=== PATIENT | male | born 1960 | race African-American/Black ===

== ENCOUNTER 2019-08-11 14:45 | Emergency (ER) | payer SELFPAY ==
--- NOTE | 2019-08-11 16:56 | ED ---
Complex/Multi-Sys Presentation - HPI Summary HPI Summary: This patient is a 59 year old male presenting to [facility] with a chief complaint of medication refill. He is a previous chemo patient, has reoccurring bladder retention that has required hospitalization multiple times since april. states his medications are going to run out and has not been able to complete DDS requirements. returned from [facility] 07/29. He states he is on Plavix for blood clot in his bladder. Patient reports bladder spasms when he has urinary retention, he says he is doing well and his medications have been the reason why. Plavix 75 mg Finasteride 5 mg once a day Tampsulosin - History Of Current Complaint Chief Complaint: EDMedicationRefill Hx Obtained From: Patient - Allergies/Home Medications Allergies/Adverse Reactions: Allergies Allergy/AdvReac Type Severity Reaction Status Date / Time No Known Allergies Allergy Verified 08/11/19 15:07 Home Medications: Home Medications Clopidogrel TAB* [Plavix TAB*] 75 mg PO DAILY 08/11/19 [History Confirmed ] Finasteride TAB* [Proscar TAB*] 5 mg PO DAILY 08/11/19 [History Confirmed ] Finasteride TAB* [Proscar TAB*] 5 mg PO DAILY 30 Days #30 tab 08/11/19 [Rx] Tamsulosin CAP* [Flomax CAP*] 0.4 mg PO DAILY 08/11/19 [History Confirmed ] Tamsulosin CAP* [Flomax CAP*] 0.4 mg PO DAILY 30 Days #30 cap 08/11/19 [Rx] PMH/Surg Hx/FS Hx/Imm Hx Cardiovascular History: Reports: Hx Deep Vein Thrombosis History: Reports: Hx Benign Prostatic Hyperplasia, Other Problems/ Disorders - Prostate cancer Musculoskeletal History: Reports: Hx Arthritis Infectious Disease History: No Infectious Disease History: Denies: Traveled Outside the [place] in Last 30 Days - Family History Known Family History: Positive: Other - Cancer - Social History Hx Substance Use: Yes Smoking Status (MU): Current Every Day Smoker Type: Cigarettes Review of Systems Negative: Fever Positive: other - Bladder spasms when not on medication for extended periods of time All Other Systems Reviewed And Are Negative: Yes Physical Exam - Summary Physical Exam Summary: General: Well appearing, no distress HEENT: PERRL Cardiovascular: Skin is well perfused Pulmonary: No respiratory distress, no tachypnea Abdomen: Non-distended Skin: Warm, pink, dry MSK: No edema Psych: Normal affect Neuro: A&Ox3 Triage Information Reviewed: Yes Vital Signs On Initial Exam: Initial Vitals Temp Pulse Resp BP Pulse Ox 98.7 F 69 16 146/82 100 08/11/19 15:01 08/11/19 15:01 08/11/19 15:01 08/11/19 15:01 08/11/19 15:01 Vital Signs Reviewed: Yes Procedures - Sedation Patient Received Moderate/Deep Sedation with Procedure: No Diagnostics - Vital Signs Vital Signs Temp Pulse Resp BP Pulse Ox 08/11/19 15:01 98.7 F 69 16 146/82 100 - Laboratory Lab Statement: Any lab studies that have been ordered have been reviewed, and results considered in the medical decision making process. Complex Multi-Symp Course/Dx Course Of Treatment: 59 y/o male w hx BPH and prostate cancer p/w medication refill. - refilled tamsulosin and finasteride. Advise patient to follow-up with primary care regarding Plavix as he is taken off of secondary to hematuria. - Diagnoses Provider Diagnoses: BPH (benign prostatic hyperplasia), Medication refill, Prostate cancer Discharge ED - Sign-Out/Discharge Documenting (check all that apply): Patient Departure - Discharge Plan Condition: Good Disposition: HOME Prescriptions: Finasteride TAB* [Proscar TAB*] 5 mg PO DAILY 30 Days #30 tab Tamsulosin CAP* [Flomax CAP*] 0.4 mg PO DAILY 30 Days #30 cap Patient Education Materials: Enlarged Prostate (BPH) (ED) Referrals: Silvestre Zacarias MD [Medical Doctor] - [facility] [Outside] Additional Instructions: You were seen in the emergency department for medication refill. Please follow up with primary care clinic, and urology as instructed. Please follow up with your primary care doctor in next 2-3 days and return to emergency department for worsening or concerning symptoms. It was a pleasure taking care of you today. - Billing Disposition and Condition Condition: GOOD Disposition: Home - Attestation Statements Document Initiated by Scribe: Yes Documenting Scribe: Eleazar Vogel Provider For Whom Scribe is Documenting (Include Credential): Andres Garay MD Scribe Attestation: I, Eleazar Vogel, scribed for Andres Garay MD on 08/11/19 at 1723. Scribe Documentation Reviewed: Yes Provider Attestation: The documentation as recorded by the scribe, Eleazar Vogel accurately reflects the service I personally performed and the decisions made by me, Andres Garay MD Status of Scribe Document: Viewed
[2019-08-11 17:03] VITALS: BP 149/117
== END 2019-08-11 17:02 | disposition home or self-care (01) ==
LOC: ED 14:45
DX: N40.0 Benign prostatic hyperplasia without lower urinary tract symptoms (principal); C61 Malignant neoplasm of prostate; Z79.899 Other long term (current) drug therapy; Z79.02 Long term (current) use of antithrombotics/antiplatelets; Z86.718 Personal history of other venous thrombosis and embolism; F17.210 Nicotine dependence, cigarettes, uncomplicated
CPT/HCPCS: 99282

== ENCOUNTER 2019-09-21 10:30 | Emergency (ER) | payer MEDICAID ==
[2019-09-21 11:15] VITALS: BP 157/71
--- NOTE | 2019-09-21 11:40 | ED ---
GI/ HPI - HPI Summary HPI Summary: Patient is a 59-year-old male presenting to the ED with request for refill on his medications. [facility] He recently relocated to the area and has not established care. He states he has been treated for prostate CA stage 1, but has had not further symptoms. D/t multiple blood clots prior to his cystoscopy, he was placed on finasteride and flomax. He was also placed on plavix prior to this d/t stroke hx. He has not had any of these medications in 2 weeks or so and was seen 1 mo ago here in the ED where his prescriptions were refilled. He has not followed up with urology or care connections. He states he does not want to take the finasteride anymore as he was only placed on that d/t acute urinary retention associated with his surgery. He has not had any pain or retention since that time. Denies sxs today. - History of Current Complaint Chief Complaint: EDPrescriptionNeeded Time Seen by Provider: 09/21/19 10:38 Stated Complaint: RENEW PRESCRIPTIONS PER PT Hx Obtained From: Patient Timing: Constant Pain Intensity: 0 - Allergy/Home Medications Allergies/Adverse Reactions: Allergies Allergy/AdvReac Type Severity Reaction Status Date / Time No Known Allergies Allergy Verified 09/21/19 10:35 Home Medications: Home Medications Clopidogrel TAB* [Plavix TAB*] 75 mg PO DAILY 08/11/19 [History Confirmed ] Finasteride TAB* [Proscar TAB*] 5 mg PO DAILY 30 Days #30 tab 08/11/19 [Rx Confirmed 09/21/19] Tamsulosin CAP* [Flomax CAP*] 0.4 mg PO DAILY 30 Days #30 cap 08/11/19 [Rx Confirmed 09/21/19] Clopidogrel TAB* [Plavix TAB*] 75 mg PO DAILY #30 tab 09/21/19 [Rx] Tamsulosin CAP* [Flomax CAP*] 0.4 mg PO DAILY #30 cap 09/21/19 [Rx] PMH/Surg Hx/FS Hx/Imm Hx Previously Healthy: Yes Cardiovascular History: Reports: Hx Deep Vein Thrombosis History: Reports: Hx Benign Prostatic Hyperplasia, Other Problems/ Disorders - Prostate cancer Musculoskeletal History: Reports: Hx Arthritis Infectious Disease History: No Infectious Disease History: Denies: Traveled Outside the [place] in Last 30 Days - Family History Known Family History: Positive: Other - Cancer - Social History Occupation: Unemployed Lives: Alone Alcohol Use: Occasionally Hx Substance Use: Yes Substance Use Type: Reports: None Smoking Status (MU): Current Every Day Smoker Type: Cigarettes Review of Systems Negative: Fever, Chills, Fatigue, Skin Diaphoresis Negative: Palpitations, Chest Pain Genitourinary: Negative Positive: no symptoms reported, see HPI Negative: Arthralgia, Myalgia Neurological/Mental Status: Negative All Other Systems Reviewed And Are Negative: Yes Physical Exam Triage Information Reviewed: Yes Vital Signs On Initial Exam: Initial Vitals Temp Pulse Resp BP Pulse Ox 97.9 F 63 16 139/97 96 09/21/19 10:32 09/21/19 10:32 09/21/19 10:32 09/21/19 10:32 09/21/19 10:32 Vital Signs Reviewed: Yes Appearance: Positive: Well-Appearing, Well-Nourished Skin: Positive: Warm, Skin Color Reflects Adequate Perfusion Head/Face: Positive: Normal Head/Face Inspection Eyes: Positive: EOMI, RITIKA, Conjunctiva Clear Neck: Positive: Supple, No Lymphadenopathy Respiratory/Lung Sounds: Positive: Clear to Auscultation, Breath Sounds Present Cardiovascular: Positive: RRR, Pulses are Symmetrical in both Upper and Lower Extremities Musculoskeletal: Positive: Normal, Strength/ROM Intact Neurological: Positive: Speech Normal Psychiatric: Positive: Normal, Affect/Mood Appropriate AVPU Assessment: Alert Procedures - Sedation Patient Received Moderate/Deep Sedation with Procedure: No Diagnostics - Vital Signs Vital Signs Temp Pulse Resp BP Pulse Ox 09/21/19 11:14 98.2 F 70 14 157/71 100 09/21/19 10:32 97.9 F 63 16 139/97 96 - Laboratory Lab Statement: Any lab studies that have been ordered have been reviewed, and results considered in the medical decision making process. GIGU Course/Dx - Course Course Of Treatment: Patient was given referrals to urology as well as care connections to establish care. He was given Plavix 75 mg by mouth daily and Flomax 0.4 mg by mouth daily at this time. Patient is requesting not to be placed on finasteride as he states this was only to be temporary due to urinary retention associated with his procedure. His procedure was over 2 months ago and states he does not have any evidence of urinary retention denies any gross hematuria. - Diagnoses Provider Diagnoses: Medication refill - Critical Care Time Critical Care Statement: Critical care time is provided exclusive of any time spent performing procedures. Discharge ED - Sign-Out/Discharge Documenting (check all that apply): Patient Departure - Discharge Plan Condition: Stable Disposition: HOME Prescriptions: Clopidogrel TAB* [Plavix TAB*] 75 mg PO DAILY #30 tab Tamsulosin CAP* [Flomax CAP*] 0.4 mg PO DAILY #30 cap Referrals: [facility] [Outside] No Primary Care Phys,[facility] [Primary Care Provider] - Silvestre Zacarias MD [Medical Doctor] - Additional Instructions: Please call urology and care connections to establish care on MONDAY Continue to take your medications as prescribed We have discontinued your finasteride - if you develop any retention - you need to return to the ED - Billing Disposition and Condition Condition: STABLE Disposition: Home
== END 2019-09-21 11:14 | disposition home or self-care (01) ==
LOC: ED 10:30
DX: Z76.0 Encounter for issue of repeat prescription (principal); Z86.718 Personal history of other venous thrombosis and embolism; Z79.02 Long term (current) use of antithrombotics/antiplatelets; N40.0 Benign prostatic hyperplasia without lower urinary tract symptoms; M19.90 Unspecified osteoarthritis, unspecified site; F17.210 Nicotine dependence, cigarettes, uncomplicated
CPT/HCPCS: 99282

== ENCOUNTER 2019-12-24 13:29 | Inpatient (IN) ==
[2019-12-24] MEDS ORDERED: Morphine 4 MG/ML VIAL (1 ml) IV ONE ×2 (15:32→17:33)
[2019-12-24] MEDS ORDERED: NS 0.9% 1000 ml BAG 1,000 ML IV ONE (15:33)
[2019-12-24 16:01] LABS: ABS Lymphocytes 1.7 10^3/ul (1.0-4.8); ABS Monocytes 0.6 10^3/ul (0-0.8); ABS Neutrophils 4.5 10^3/ul (1.5-7.7); Eosinophil % 0.3 %; Hematocrit 42 % (42-52); Hemoglobin 14.5 g/dL (14.0-18.0); Mean Corpuscular HGB Conc 35 g/dL (31-36); Mean Corpuscular Hemoglobin 34 pg (27-31); Mean Corpuscular Volume 100 fL (80-94); Mean Platelet Volume 7.2 fL (7.4-10.4); Nucleated Red Blood Cells % 0.1; Platelet Count 259 10^3/uL (150-450); Red Blood Count 4.23 10^6 /uL (4.18-5.48); Red Cell Distribution Width 15 % (10-15); White Blood Count 6.8 10^3/uL (3.5-10.8)
[2019-12-24 16:33] LABS: Albumin/Globulin Ratio 1.4 (1-3); BUN/Creatinine Ratio 13.4 (8-20); C Reactive Protein 17.37 mg/L (<8.01); Calcium 9.5 mg/dL (8.6-10.3); EGFR African American 96.2 (>60); EGFR Non-African American 79.5 (>60); Globulin 2.9 g/dL (2-4); Total Protein 6.9 g/dL (6.4-8.9)
[2019-12-24] MEDS ORDERED: Thiamine 100 MG/ML 2 ml VIAL (200 mg) IM ONE (18:56)
[2019-12-24] MEDS ORDERED: Morphine 4 MG/ML VIAL (1 ml) IV PRN (19:21)
[2019-12-24 20:22] LABS: Urine Benzodiazepine Screen None Detected (None Detect); Urine Cannabinoids Screen Presumptive Positive (None Detect); Urine Opiates Screen Presumptive Positive (None Detect)
[2019-12-24] MEDS: Multivitamins/Minerals TAB PO SCH (22:39)
[2019-12-24] MEDS: Nicotine PATCH 21 MG/24 HR PATCH TRANSDERM SCH (22:39)
[2019-12-25] MEDS: oxyCODONE/Acetamin 5/325 mg TAB PO PRN ×3 (01:26→14:36)
[2019-12-25 08:11] LABS: ABS Eosinophils 0.1 10^3/ul (0-0.6); ABS Lymphocytes 1.8 10^3/ul (1.0-4.8); ABS Monocytes 0.5 10^3/ul (0-0.8); ABS Neutrophils 2.2 10^3/ul (1.5-7.7); Eosinophil % 1.5 %; Hematocrit 38 % (42-52); Hemoglobin 13.5 g/dL (14.0-18.0); Lymphocyte % 39.1 %; Mean Corpuscular HGB Conc 36 g/dL (31-36); Mean Corpuscular Hemoglobin 36 pg (27-31); Mean Corpuscular Volume 99 fL (80-94); Mean Platelet Volume 7.4 fL (7.4-10.4); Nucleated Red Blood Cells % 0.2; Platelet Count 239 10^3/uL (150-450); Red Cell Distribution Width 15 % (10-15); White Blood Count 4.6 10^3/uL (3.5-10.8)
[2019-12-25 08:24] LABS: BUN/Creatinine Ratio 15.8 (8-20); Calcium 8.5 mg/dL (8.6-10.3); EGFR African American 91.8 (>60); EGFR Non-African American 75.9 (>60); Potassium 3.9 mmol/L (3.5-5.0)
[2019-12-25] MEDS: Multivitamins/Minerals TAB PO SCH (08:50)
[2019-12-25] MEDS: Nicotine PATCH 21 MG/24 HR PATCH TRANSDERM SCH (08:51)
[2019-12-25] MEDS: Aspirin EC 81 mg TAB.EC (enteric coated) PO SCH (08:51)
[2019-12-25] MEDS ORDERED: Nicotine Lozenge mini 4 MG LOZNG.MINI MT PRN (09:19)
[2019-12-25 15:42] LABS: Urine Appearance Clear; Urine Bilirubin Negative (Negative); Urine Blood Negative (Negative); Urine Color Yellow; Urine Glucose Negative (Negative); Urine Ketones Negative (Negative); Urine Nitrite Negative (Negative); Urine Protein Negative (Negative); Urine Specific Gravity 1.012 (1.010-1.030); Urine Urobilinogen Negative (Negative)
[2019-12-25] MEDS: Enoxaparin 40 MG/0.4 ML SYR SUBCUT SCH (15:52)
[2019-12-25] MEDS: Morphine 2 MG/ML SYRINGE IV PRN (19:30)
[2019-12-26] MEDS: Morphine 2 MG/ML SYRINGE IV PRN (03:58)
[2019-12-26] MEDS: oxyCODONE/Acetamin 5/325 mg TAB PO PRN ×3 (08:15→20:15)
[2019-12-26] MEDS: Multivitamins/Minerals TAB PO SCH ×3 (08:16→16:15)
[2019-12-26] MEDS: Nicotine PATCH 21 MG/24 HR PATCH TRANSDERM SCH (08:17)
[2019-12-26] MEDS: Aspirin EC 81 mg TAB.EC (enteric coated) PO SCH (08:17)
[2019-12-26] MEDS: Polyethylene Glycol 3350 17 GM PACKET PO SCH (12:37)
[2019-12-26] MEDS ORDERED: Ondansetron 4 mg VIAL 2 MG/ML 2 ml VIAL IV PRN (15:50)
[2019-12-26] MEDS: Enoxaparin 40 MG/0.4 ML SYR SUBCUT SCH (16:16)
[2019-12-27] MEDS: oxyCODONE/Acetamin 5/325 mg TAB PO PRN (04:59)
[2019-12-27 07:46] VITALS: BP 127/76
[2019-12-27] MEDS: Nicotine PATCH 21 MG/24 HR PATCH TRANSDERM SCH (08:30)
[2019-12-27] MEDS: Multivitamins/Minerals TAB PO SCH (08:31)
[2019-12-27] MEDS: Aspirin EC 81 mg TAB.EC (enteric coated) PO SCH (08:33)
[2019-12-27] MEDS: Polyethylene Glycol 3350 17 GM PACKET PO SCH (08:34)
== END 2019-12-27 11:10 | DRG 384 ==
LOC: ED 13:29 → MEDTELE 13:29
PROVIDERS: ADMIT Internal Medicine; ATTEND Internal Medicine